=== PATIENT | female | born 1990 ===

== ENCOUNTER 2020-07-30 22:40 | Inpatient (IN) ==
[2020-07-30] MEDS ORDERED: Buffered Lidocaine 1% SYRIN 1 ml INTRADERM ONE (23:16)
[2020-07-30] MEDS ORDERED: Lactated Ringers 1000 ml BAG 1,000 ML IV ONE (23:16)
[2020-07-30 23:40] LABS: Urine Benzodiazepine Screen None Detected (None Detect); Urine Cannabinoids Screen None Detected (None Detect); Urine Opiates Screen None Detected (None Detect)
[2020-07-30] MEDS ORDERED: Lactated Ringers 1000 ml BAG 1,000 ML IV SCH (23:45)
[2020-07-31] MEDS ORDERED: Glycerin ADULT 2.4 gm SUPP PR PRN (01:41)
[2020-07-31] MEDS ORDERED: Dibucaine 1% OINT 28.35 GM TUBE PR PRN (01:41)
[2020-07-31] MEDS ORDERED: Witch Hazel PAD JAR TOPICAL PRN (01:41)
[2020-08-01 06:24] LABS: ABS Eosinophils 0.3 10^3/ul (0-0.6); ABS Lymphocytes 2.4 10^3/ul (1.0-4.8); ABS Monocytes 0.7 10^3/ul (0-0.8); ABS Neutrophils 6.8 10^3/ul (1.5-7.7); Eosinophil % 2.7 %; Hematocrit 35 % (35-47); Hemoglobin 11.7 g/dL (12.0-16.0); Lymphocyte % 23.2 %; Mean Corpuscular HGB Conc 33 g/dL (31-36); Mean Corpuscular Hemoglobin 29 pg (27-31); Mean Corpuscular Volume 87 fL (80-97); Mean Platelet Volume 9.1 fL (7.4-10.4); Platelet Count 162 10^3/uL (150-450); Red Blood Count 4.08 10^6 /uL (3.70-4.87); Red Cell Distribution Width 14 % (10-15); White Blood Count 10.2 10^3/uL (3.5-10.8)
[2020-08-01 08:13] VITALS: BP 122/64
== END 2020-08-01 11:29 | disposition home or self-care (01) ==
LOC: MCHOBOUT 22:40 → MCHOB 23:11
PROVIDERS: ADMIT Midwife; ATTEND Midwife